=== PATIENT | female | born 1995 | race African-American/Black ===

== ENCOUNTER 2017-01-07 22:36 | Emergency (ER) | payer OTHER ==
[~2017-01-07] VITALS: Ht 167.6 cm; Wt 141.0 kg
[2017-01-07 22:38] VITALS: BP 175/107; PULSE 108; RESP 16; TEMP 98.4; O2SAT 100
[2017-01-07] MEDS ORDERED: SODIUM CHLORIDE 0.9% FLUSH 10 ML FLUSH IVF PRN (23:30)
--- NOTE | 2017-01-07 23:44 | RADRPT ---
EXAM DATE/TIME: 01/07/2017 23:37 [facility] COMPARISON: No previous studies available for comparison. INDICATIONS : Cough for two weeks. MEDICAL HISTORY : None. SURGICAL HISTORY : None. ENCOUNTER: Initial ACUITY: 2 weeks PAIN SCORE: 2/10 LOCATION: Bilateral chest FINDINGS: PA and lateral views of the chest demonstrate the lungs to be symmetrically aerated without evidence of mass, infiltrate or effusion. The cardiomediastinal contours are unremarkable. Osseous structure s are intact. CONCLUSION: No evidence of acute cardiopulmonary disease. Martin Barry MD on January 07, 2017 at 23:42 Board Certified Radiologist. This report was verified electronically.
--- NOTE | 2017-01-07 23:58 | PD ---
HPI Chief Complaint: Chest Pain Time Seen by Provider: 23:07 Travel History International Travel<30 days: No Contact w/Intl Traveler<30days: No Traveled to known affect area: No History of Present Illness HPI Patient is a 21-year-old female who comes in complaining of chest pain. She says she has been having the pain on and off for the past 2 weeks. She says it got worse last night, and she felt a pressure in her chest. She does report some coughing and occasionally gets out of breath. She denies any fever or chills. She says she went to [facility] and found her blood pressure to be high, so they told her she should come in to the emergency department. She has no history of heart problems. She has history of psychiatric issues, but has not been on her medications. She denies any recent travel, contraceptive use, leg swelling or leg pain. PFSH Past Medical History Bipolar Disorder: Yes Diminished Hearing: No Tetanus Vaccination: Unknown Influenza Vaccination: No ?: Not LMP: 2 MONTHS AGO - IRREGULAR Past Surgical History Oral Surgery: Yes Social History Alcohol Use: No Tobacco Use: No Substance Use: No Allergies-Medications (Allergen,Severity, Reaction): Coded Allergies: No Known Allergies (Unverified , 01/07/17) Reported Meds & Prescriptions Reported Meds & Active Scripts Active Proventil Hfa 6.7 GM Inh (Albuterol Sulfate) 90 Mcg/Act Aer 2 Puff INH Q4-6H PRN Zithromax Z-Doroteo (Azithromycin) 250 Mg Dspk 250 Mg PO DIRECTED 500 MG (2 tabs) day 1, then 1 tab days 2-5. Review of Systems Except as stated in HPI: all other systems reviewed are Neg General / Constitutional: No: Fever, Chills HENT: No: Headaches, Lightheadedness Cardiovascular: Positive: Chest Pain or Discomfort Respiratory: Positive: Cough, Shortness of Breath Gastrointestinal: No: Nausea, Vomiting, Abdominal Pain Genitourinary: No: Urgency, Frequency, Dysuria Musculoskeletal: No: Edema, Pain Skin: No Rash, No Change in Pigmentation Neurologic: No: Weakness, Dizziness Physical Exam Narrative GENERAL: Awake and alert, in no acute distress. SKIN: Focused skin assessment warm/dry. HEAD: Atraumatic. Normocephalic. EYES: Pupils equal and round. No scleral icterus. ENT: Mucous membranes pink and moist. NECK: Trachea midline. No JVD. CARDIOVASCULAR: Regular rate and rhythm. No murmur appreciated. RESPIRATORY: No accessory muscle use. Clear to auscultation. Breath sounds equal bilaterally. GASTROINTESTINAL: Abdomen soft, non-tender, nondistended. MUSCULOSKELETAL: No obvious deformities. No clubbing. No cyanosis. No edema. No calf tenderness. NEUROLOGICAL: Awake and alert. No obvious cranial nerve deficits. Motor grossly within normal limits. Normal speech. PSYCHIATRIC: Appropriate mood and affect; insight and judgment normal. Data Data Last Documented VS Vital Signs Date Time Temp Pulse Resp B/P Pulse Ox O2 Delivery O2 Flow Rate FiO2 01/08/17 02:02 94 20 132/76 100 01/07/17 22:38 98.4 Orders Chest, Pa & Lat (01/07/17 ) Complete Blood Count With Diff (01/07/17 23:17) Comprehensive Metabolic Panel (01/07/17 23:17) D-Dimer (01/07/17 23:17) Troponin I (01/07/17 23:17) Ecg Monitoring (01/07/17 23:17) Iv Access Insert/Monitor (01/07/17 23:17) Oximetry (01/07/17 23:17) Sodium Chloride 0.9% Flush (Ns Flush) (01/07/17 23:30) Ed Urine Pregnancytest Poc (01/07/17 23:17) Electrocardiogram (01/08/17 ) Ct Pulmonary Angiogram (01/08/17 00:41) Iohexol 350 Inj (Omnipaque 350 Inj) (01/08/17 01:21) Labs Laboratory Tests Test 01/08/17 00:05 White Blood Count 13.7 TH/MM3 Red Blood Count 4.47 MIL/MM3 Hemoglobin 10.8 GM/DL Hematocrit 34.2 % Mean Corpuscular Volume 76.4 FL Mean Corpuscular Hemoglobin 24.1 PG Mean Corpuscular Hemoglobin 31.5 % Concent Red Cell Distribution Width 18.2 % Platelet Count 396 TH/MM3 Mean Platelet Volume 7.2 FL Neutrophils (%) (Auto) % Lymphocytes (%) (Auto) % Monocytes (%) (Auto) % Eosinophils (%) (Auto) % Basophils (%) (Auto) % Neutrophils # (Auto) TH/MM3 Lymphocytes # (Auto) TH/MM3 Monocytes # (Auto) TH/MM3 Eosinophils # (Auto) TH/MM3 Basophils # (Auto) TH/MM3 CBC Comment AUTO DIFF Differential Total Cells 100 Counted Neutrophils % (Manual) 44 % Lymphocytes % 52 % Monocytes % 4 % Neutrophils # (Manual) 6.0 TH/MM3 Differential Comment FINAL DIFF MANUAL Platelet Estimate NORMAL Platelet Morphology Comment NORMAL D-Dimer Quantitative (PE/DVT) 0.64 MG/L FEU Sodium Level 142 MEQ/L Potassium Level 3.6 MEQ/L Chloride Level 105 MEQ/L Carbon Dioxide Level 28.3 MEQ/L Anion Gap 9 MEQ/L Blood Urea Nitrogen 13 MG/DL Creatinine 0.89 MG/DL Estimat Glomerular Filtration 79 ML/MIN Rate Random Glucose 93 MG/DL Calcium Level 9.1 MG/DL Total Bilirubin 0.2 MG/DL Aspartate Amino Transf 14 U/L (AST/SGOT) Alanine Aminotransferase 18 U/L (ALT/SGPT) Alkaline Phosphatase 81 U/L Troponin I LESS THAN 0.02 NG/ML Total Protein 8.8 GM/DL Albumin 3.8 GM/DL [facility] Medical Decision Making Medical Screen Exam Complete: Yes Emergency Medical Condition: Yes Differential Diagnosis Pneumonia versus pneumothorax versus costochondritis versus bronchitis Narrative Course Patient is a 20-year-old female comes in complaining of chest pain. Exam shows no acute abnormalities. Patient is hypertensive, but has no other risk factors for ACS. She denies any drug use. IV established, labs sent. Chest x-ray performed shows no acute abnormalities. Troponin is negative, but D-dimer is elevated. CTA ordered to rule out PE as cause of chest pain. Patient signed out to Dr. Renteria to follow up CTA and disposition the patient. Scripts Albuterol 6.7 GM Inh (Proventil Hfa 6.7 GM Inh)90 Mcg/Act Aer2 Puff INH Q4-6H PRN (SHORTNESS OF BREATH) #1 INHALER Ref 0 Prov:Josee Renteria MD 01/08/17 Azithromycin (Zithromax Z-Doroteo)250 Mg [id number] Mg PO DIRECTED #1 DSPK Ref 0 500 MG (2 tabs) day 1, then 1 tab days 2-5. Prov:Josee Renteria MD 01/08/17 Melissa Pizarro MD Jan 07, 2017 23:58
[2017-01-08 00:24] LABS: HEMATOCRIT 34.2 % (35.0-46.0); MEAN CELL VOLUME 76.4 FL (80.0-100.0); MEAN CORPUSCULAR HEMOGLOBIN 24.1 PG (27.0-34.0); MEAN CORPUSCULAR HGB CONC 31.5 % (32.0-36.0); PLATELET COUNT 396 TH/MM3 (150-450); RED BLOOD COUNT 4.47 MIL/MM3 (4.00-5.30); RED CELL DISTRIBUTION WIDTH 18.2 % (11.6-17.2); WHITE BLOOD COUNT 13.7 TH/MM3 (4.0-11.0)
[2017-01-08 00:25] LABS: HEMO FLAGS AUTO DIFF
[2017-01-08 00:37] LABS: ALT (GPT) 18 U/L (10-53); ANION GAP 9 MEQ/L (5-15); AST (GOT) 14 U/L (15-37); BICARBONATE 28.3 MEQ/L (21.0-32.0); BLOOD UREA NITROGEN 13 MG/DL (7-18); CHLORIDE 105 MEQ/L (98-107); GLOMERULAR FILTRATION RATE 79 ML/MIN (>89); POTASSIUM 3.6 MEQ/L (3.5-5.1); SODIUM (NA) 142 MEQ/L (136-145)
[2017-01-08 00:40] LABS: ALKALINE PHOSPHATASE 81 U/L (45-117); TOTAL BILIRUBIN ADULT 0.2 MG/DL (0.2-1.0)
[2017-01-08 01:21] VITALS: BP 123/74; PULSE 90; RESP 20; O2SAT 100
[2017-01-08] MEDS ORDERED: IOHEXOL 350 MG/ML 10 ML VIAL (for RAD DIAG) IV ONE (01:21)
--- NOTE | 2017-01-08 01:23 | RADRPT ---
EXAM DATE/TIME: 01/08/2017 01:03 [facility] COMPARISON: No previous studies available for comparison. INDICATIONS : Chest pain from cough. IV CONTRAST: 70 cc Omnipaque 350 (iohexol) IV RADIATION DOSE: 25.52 CTDIvol (mGy) MEDICAL HISTORY : None SURGICAL HISTORY : None. ENCOUNTER: Initial ACUITY: 2 weeks PAIN SCALE: 8/10 LOCATION: Bilateral chest TECHNIQUE: Volumetric scanning of the chest was performed using a pulmonary embolism protocol MIP images were re constructed. Using automated exposure control and adjustment of the mA and/or kV according to patien t size, radiation dose was kept as low as reasonably achievable to obtain optimal diagnostic quality images. FINDINGS: PULMONARY ARTERIES: No filling defects are seen in the pulmonary arteries through the segmental level. LUNGS: There is no consolidation or pneumothorax . No concerning pulmonary nodule is visualized. PLEURAE: There is no pleural thickening or pleural effusion. MEDIASTINUM: There is good visualization of the great vessels of the middle mediastinum. No evidence of mediastin al or hilar adenopathy/mass. MUSCULOSKELETAL: Within normal limits for patient age. MISCELLANEOUS: The visualized upper abdominal organs demonstrate no acute abnormality. CONCLUSION: No pulmonary embolus demonstrated. Lungs are clear. Martin Barry MD on January 08, 2017 at 1:20 Board Certified Radiologist. This report was verified electronically.
[2017-01-08 01:32] LABS: POLYS (SEG NEUTROPHILS) 44 % (16-70); WBC DIFF SAMPLE 100
[2017-01-08 01:33] LABS: PLATELET ESTIMATE SMEAR NORMAL (NORMAL); PLATELET MORPHOLOGY NORMAL (NORMAL); SCAN/DIFF FINAL DIFF MANUAL
[2017-01-08] MEDS ORDERED: ALBU6.7H INH (01:42)
[2017-01-08] MEDS ORDERED: ZITHTAB PO (01:42)
--- NOTE | 2017-01-08 01:42 | PD ---
Physical Exam Date Seen by Provider: Jan 08, 2017 Time Seen by Provider: 01:00 Narrative Patient signed out to me at [address] Sanchez, please see previous notes for further information. Awaiting CTA for completion of workup. EKG, chest x-ray, and other exam is essentially unremarkable. Laboratory Tests Test 01/08/17 00:05 White Blood Count 13.7 TH/MM3 (4.0-11.0) Hemoglobin 10.8 GM/DL (11.6-15.3) Hematocrit 34.2 % (35.0-46.0) Mean Corpuscular Volume 76.4 FL (80.0-100.0) Mean Corpuscular Hemoglobin 24.1 PG (27.0-34.0) Mean Corpuscular Hemoglobin 31.5 % Concent (32.0-36.0) Red Cell Distribution Width 18.2 % (11.6-17.2) Lymphocytes % 52 % (9-44) D-Dimer Quantitative (PE/DVT) 0.64 MG/L FEU (0.00-0.50) Estimat Glomerular Filtration 79 ML/MIN (>89) Rate Aspartate Amino Transf 14 U/L (15-37) (AST/SGOT) Troponin I LESS THAN 0.02 NG/ML (0.02-0.05) Total Protein 8.8 GM/DL (6.4-8.2) Last [address] Angiography 01/08/17 0041 Signed Impressions: Service Date/Time: Sunday, January 08, 2017 01:03 - CONCLUSION: No pulmonary embolus demonstrated. Lungs are clear. Martin Barry MD Chest X-Ray 01/07/17 0000 Signed Impressions: Service Date/Time: Saturday, January 07, 2017 23:37 - CONCLUSION: No evidence of acute cardiopulmonary disease. Martin Barry MD CTA did not show signs of PE. At this point, considering patient's 2 weeks' history of coughing and symptoms, symptoms are more indicative of bronchitis and my plan would be to treat him for bronchitis and have her follow-up with primary care physician. Return for any worsening in symptoms as needed. The plan has been discussed with her and she states understanding. Data Data Last Documented VS Vital Signs Date Time Temp Pulse Resp B/P Pulse Ox O2 Delivery O2 Flow Rate FiO2 01/08/17 01:21 90 20 123/74 100 01/07/17 22:38 98.4 Orders Chest, Pa & Lat (01/07/17 ) Complete Blood Count With Diff (01/07/17 23:17) Comprehensive Metabolic Panel (01/07/17 23:17) D-Dimer (01/07/17 23:17) Troponin I (01/07/17 23:17) Ecg Monitoring (01/07/17 23:17) Iv Access Insert/Monitor (01/07/17 23:17) Oximetry (01/07/17 23:17) Sodium Chloride 0.9% Flush (Ns Flush) (01/07/17 23:30) Ed Urine Pregnancytest Poc (01/07/17 23:17) Electrocardiogram (01/08/17 ) Ct Pulmonary Angiogram (01/08/17 00:41) Iohexol 350 Inj (Omnipaque 350 Inj) (01/08/17 01:21) Labs Laboratory Tests Test 01/08/17 00:05 White Blood Count 13.7 TH/MM3 Red Blood Count 4.47 MIL/MM3 Hemoglobin 10.8 GM/DL Hematocrit 34.2 % Mean Corpuscular Volume 76.4 FL Mean Corpuscular Hemoglobin 24.1 PG Mean Corpuscular Hemoglobin 31.5 % Concent Red Cell Distribution Width 18.2 % Platelet Count 396 TH/MM3 Mean Platelet Volume 7.2 FL Neutrophils (%) (Auto) % Lymphocytes (%) (Auto) % Monocytes (%) (Auto) % Eosinophils (%) (Auto) % Basophils (%) (Auto) % Neutrophils # (Auto) TH/MM3 Lymphocytes # (Auto) TH/MM3 Monocytes # (Auto) TH/MM3 Eosinophils # (Auto) TH/MM3 Basophils # (Auto) TH/MM3 CBC Comment AUTO DIFF Differential Total Cells 100 Counted Neutrophils % (Manual) 44 % Lymphocytes % 52 % Monocytes % 4 % Neutrophils # (Manual) 6.0 TH/MM3 Differential Comment FINAL DIFF MANUAL Platelet Estimate NORMAL Platelet Morphology Comment NORMAL D-Dimer Quantitative (PE/DVT) 0.64 MG/L FEU Sodium Level 142 MEQ/L Potassium Level 3.6 MEQ/L Chloride Level 105 MEQ/L Carbon Dioxide Level 28.3 MEQ/L Anion Gap 9 MEQ/L Blood Urea Nitrogen 13 MG/DL Creatinine 0.89 MG/DL Estimat Glomerular Filtration 79 ML/MIN Rate Random Glucose 93 MG/DL Calcium Level 9.1 MG/DL Total Bilirubin 0.2 MG/DL Aspartate Amino Transf 14 U/L (AST/SGOT) Alanine Aminotransferase 18 U/L (ALT/SGPT) Alkaline Phosphatase 81 U/L Troponin I LESS THAN 0.02 NG/ML Total Protein 8.8 GM/DL Albumin 3.8 GM/DL [facility] Medical Record Reviewed: Yes Supervised Visit with VJ: No Diagnosis Primary Impression: Chest pain Additional Impression: Bronchitis Referrals: [facility] Med/Other Pt SpecificInfo: Prescription(s) given Scripts Albuterol 6.7 GM Inh (Proventil Hfa 6.7 GM Inh)90 Mcg/Act Aer2 Puff INH Q4-6H PRN (SHORTNESS OF BREATH) #1 INHALER Ref 0 Prov:Josee Renteria MD 01/08/17 Azithromycin (Zithromax Z-Doroteo)250 Mg [id number] Mg PO DIRECTED #1 DSPK Ref 0 500 MG (2 tabs) day 1, then 1 tab days 2-5. Prov:Josee Renteria MD 01/08/17 Disposition: DISCHARGE HOME Condition: Stable Josee Renteria MD Jan 08, 2017 01:42
[2017-01-08 02:02] VITALS: BP 132/76
--- NOTE | 2017-01-08 17:10 | EKG ---
Date Performed: 01/08/2017 Time Performed: 00:19:46 PTAGE: 21 years EKG: Sinus rhythm MODERATE VOLTAGE CRITERIA FOR LVH, CONSIDER NORMAL VARIANT BORDERLINE ECG NO PREVIOUS TRACING DOCTOR: Carolina Garrett Interpretating Date/Time 01/08/2017 17:07:19
== END 2017-01-08 02:31 | disposition home or self-care (01) ==
LOC: NEPD 22:36 → NEPE 01-08 02:31
DX: R07.9 Chest pain, unspecified (principal); J40 Bronchitis, not specified as acute or chronic; I10 Essential (primary) hypertension; R94.31 Abnormal electrocardiogram [ECG] [EKG]
CPT/HCPCS: 71020; 71275; 80053; 84484; 84703; 85007; 85027; 85379; 93005; 99285; Q9967

== ENCOUNTER 2017-01-09 18:01 | Emergency (ER) | payer OTHER ==
[~2017-01-09] VITALS: Ht 167.6 cm; Wt 140.9 kg
[~2017-01-09 18:01] MED LIST: ALBU6.7H INH; ZITHTAB PO
[2017-01-09 18:15] VITALS: BP 128/73; PULSE 90; RESP 18; TEMP 98.4; O2SAT 94
[2017-01-09 19:22] VITALS: BP 144/75; PULSE 88; RESP 16; O2SAT 97
--- NOTE | 2017-01-09 19:58 | PD ---
HPI Chief Complaint: Chest Pain Time Seen by Provider: 19:18 Travel History International Travel<30 days: No Contact w/Intl Traveler<30days: No Traveled to known affect area: No History of Present Illness HPI The patient was seen and examined in the presence of the nurse. This patient complains of chest pain. She's had chest pain on and off for one week. It's located in the center sternum. She was seen here yesterday for the same complaint and had extensive workup which was negative. She was given prescriptions which she did not fill. Severity is mild. No alleviating factors. PFSH Past Medical History Bipolar Disorder: Yes Diminished Hearing: No ?: Not LMP: OCTOBER 2016 Past Surgical History Oral Surgery: Yes Social History Alcohol Use: No Tobacco Use: Yes Substance Use: No Allergies-Medications (Allergen,Severity, Reaction): Coded Allergies: No Known Allergies (Unverified , 01/07/17) Reported Meds & Prescriptions Reported Meds & Active Scripts Active Proventil Hfa 6.7 GM Inh (Albuterol Sulfate) 90 Mcg/Act Aer 2 Puff INH Q4-6H PRN Zithromax Z-Doroteo (Azithromycin) 250 Mg Dspk 250 Mg PO DIRECTED 500 MG (2 tabs) day 1, then 1 tab days 2-5. Review of Systems General / Constitutional: No: Fever Eyes: No: Visual changes HENT: No: Headaches Cardiovascular: Positive: Chest Pain or Discomfort Respiratory: No: Shortness of Breath Gastrointestinal: No: Abdominal Pain Genitourinary: No: Dysuria Musculoskeletal: No: Pain Skin: No Rash Neurologic: No: Weakness Psychiatric: No: Depression Endocrine: No: Polydipsia Hematologic/Lymphatic: No: Easy Bruising Physical Exam Narrative GENERAL: Well-nourished, well-developed patient in no apparent distress. SKIN: Focused skin assessment reveals no rash and nodules. Skin is Warm and dry. HEAD: Atraumatic. Normocephalic. EYES: Pupils equal and round. No scleral icterus. No injection or drainage. ENT: No nasal bleeding or discharge. Mucous membranes pink and moist. NECK: Trachea midline. No JVD. CARDIOVASCULAR: Regular rate and rhythm. No murmur appreciated. RESPIRATORY: No accessory muscle use. Clear to auscultation. Breath sounds equal bilaterally. GASTROINTESTINAL: Abdomen soft, obese, non-tender, nondistended. Hepatic and splenic margins not palpable. MUSCULOSKELETAL: No obvious deformities. No clubbing. No cyanosis. No edema. She has readily reproducible sternal tenderness replicate her chest pain complaints NEUROLOGICAL: Awake and alert. No obvious cranial nerve deficits. Motor grossly within normal limits. Normal speech. PSYCHIATRIC: Appropriate mood and affect; insight and judgment normal. Data Data Last Documented VS Vital Signs Date Time Temp Pulse Resp B/P Pulse Ox O2 Delivery O2 Flow Rate FiO2 01/09/17 19:22 88 16 144/75 97 Room Air 01/09/17 18:15 98.4 Orders Electrocardiogram (01/09/17 ) [facility] Medical Decision Making Medical Screen Exam Complete: Yes Emergency Medical Condition: Yes Medical Record Reviewed: Yes Differential Diagnosis Differential diagnosis includes [place], angina, pericarditis, pleurisy, GERD, anxiety. Narrative Course I have reviewed the patient's electronic medical record. I reviewed her extensive workup from yesterday including negative CTA This patient has some clear-cut readily reproducible chest wall tenderness suggesting musculoskeletal cause. She had extensive workup yesterday and I don't feel this needs to be repeated a day later. No clinical suspicion of CAD in this 21-year-old. Supportive care discussed The patient was advised to follow up with their physician and return if they worsen. Diagnosis Primary Impression: Musculoskeletal chest pain Additional Instructions: The patient was advised to follow up with their physician and return if they worsen. Med/Other Pt SpecificInfo: Other Disposition: 01 DISCHARGE HOME Condition: Stable Davide Gonzalez MD Jan 09, 2017 19:58
--- NOTE | 2017-01-10 13:57 | EKG ---
Date Performed: 01/09/2017 Time Performed: 18:52:51 PTAGE: 21 years EKG: Sinus rhythm MODERATE VOLTAGE CRITERIA FOR LVH, CONSIDER NORMAL VARIANT BORDERLINE ECG Compared to prior tracing no significant change PREVIOUS TRACING : 01/08/2017 00.19 DOCTOR: Millie Goddard Interpretating Date/Time 01/10/2017 13:50:26
== END 2017-01-09 20:12 | disposition home or self-care (01) ==
LOC: NEPC 18:01
DX: R07.89 Other chest pain (principal); F31.9 Bipolar disorder, unspecified; Z72.0 Tobacco use; Z79.899 Other long term (current) drug therapy
CPT/HCPCS: 93005; 99283

== ENCOUNTER 2017-01-23 20:11 | Emergency (ER) | payer MEDICAID, OTHER ==
[~2017-01-23] VITALS: Ht 167.6 cm; Wt 146.0 kg
[2017-01-23 20:13] VITALS: BP 140/95; PULSE 103; RESP 16; TEMP 98.8; O2SAT 98
--- NOTE | 2017-01-23 21:58 | PD ---
HPI Chief Complaint: Psychiatric Symptoms Time Seen by Provider: 21:12 Travel History International Travel<30 days: No Contact w/Intl Traveler<30days: No Traveled to known affect area: No History of Present Illness HPI Said 21-year-old woman who presents to the emergency department complaining of increased depression feelings. She's reports a history of bipolar disorder, as well as schizophrenia. States she is postictal shot each month and pills everyday but she hasn't been on medicines for some time. She recently moved to the area and has not seen a psychiatrist in this area before. She reports that over the past couple weeks she had increased depression symptoms. States she has also hurting herself at times, this is been worse over the past couple days because actually little bit better today. She does not feel that she is an imminent threat to herself or others at this point. She states she would like to see a psychiatrist because she feels like she is to be back on medicine. She does want to stay for psychiatric evaluation the ED this evening she would benefit from being admitted for depression symptoms. She does deny any hallucinations or delusions. History Past Medical History Narrative Medical Bipolar disorder, schizophrenia History of seizures as a child LMP: IRREG Social History Alcohol Use: Yes (OCC) Tobacco Use: Yes Allergies-Medications (Allergen,Severity, Reaction): Coded Allergies: No Known Allergies (Unverified , 01/23/17) Reported Meds & Prescriptions Reported Meds & Active Scripts Active Review of Systems Except as stated in HPI: all other systems reviewed are Neg Physical Exam Narrative GENERAL: 18 year-old woman, no acute distress. SKIN: Focused skin assessment warm/dry. HEAD: Atraumatic. Normocephalic. EYES: Pupils equal and round. No scleral icterus. No injection or drainage. ENT: No nasal bleeding or discharge. Mucous membranes pink and moist. NECK: Trachea midline. No JVD. CARDIOVASCULAR: Regular rate and rhythm. No murmur appreciated. RESPIRATORY: No accessory muscle use. Clear to auscultation. Breath sounds equal bilaterally. GASTROINTESTINAL: Abdomen soft, non-tender, nondistended. Hepatic and splenic margins not palpable. MUSCULOSKELETAL: No obvious deformities. No clubbing. No cyanosis. No edema. NEUROLOGICAL: Awake and alert. No obvious cranial nerve deficits. Motor grossly within normal limits. Normal speech. PSYCHIATRIC: Flat, somewhat sad mood. No apparent delusions or hallucinations. Insight and judgment appears fair. Data Data Last Documented VS Vital Signs Date Time Temp Pulse Resp B/P Pulse Ox O2 Delivery O2 Flow Rate FiO2 01/23/17 20:13 98.8 103 16 140/95 98 Room Air Orders Complete Blood Count With Diff (01/23/17 21:27) Comprehensive Metabolic Panel (01/23/17 21:27) Ed Urine Pregnancytest Poc (01/23/17 21:27) Psych Screen (01/23/17 21:27) Drug Screen, Random Urine (01/23/17 21:27) MDM Medical Decision Making Medical Screen Exam Complete: Yes Emergency Medical Condition: Yes Differential Diagnosis Depression, suicidality, adjustment reaction, other Narrative Course Medical decision making 20 year-old woman presents emergent [place] of increased depression feeling depressed and she psychiatry. No somatic complaints. Patient looks otherwise well. Patient is medically clear for psychiatric evaluation. Mental health screening discussed with the patient. Psychiatric screen ordered. Scripts No Active Prescriptions or Reported Meds Jg Gonzalez MD Jan 23, 2017 21:58
[2017-01-23 22:10] LABS: AUTOMATED NEUTROPHIL # 5.1 TH/MM3 (1.8-7.7); BASOPHIL # 0.1 TH/MM3 (0-0.2); BASOPHIL % 0.7 % (0.0-2.0); EOSINOPHIL # 0.1 TH/MM3 (0-0.4); EOSINOPHIL % 0.6 % (0.0-4.0); HEMATOCRIT 35.9 % (35.0-46.0); HEMO FLAGS DIFF FINAL; LYMPH % 37.4 % (9.0-44.0); LYMPHOCYTE # 3.5 TH/MM3 (1.0-4.8); MEAN CELL VOLUME 77.1 FL (80.0-100.0); MEAN CORPUSCULAR HEMOGLOBIN 23.7 PG (27.0-34.0); MEAN CORPUSCULAR HGB CONC 30.8 % (32.0-36.0); MONO % 7.7 % (0.0-8.0); NEUT % 53.6 % (16.0-70.0); PLATELET COUNT 403 TH/MM3 (150-450); RED BLOOD COUNT 4.66 MIL/MM3 (4.00-5.30); RED CELL DISTRIBUTION WIDTH 17.8 % (11.6-17.2); WHITE BLOOD COUNT 9.5 TH/MM3 (4.0-11.0)
[2017-01-23 22:18] LABS: AMPHETAMINE, URINE NEG (NEG); BARBITURATES, URINE NEG (NEG); COCAINE, URINE NEG (NEG)
[2017-01-23 22:33] LABS: ALT (GPT) 20 U/L (10-53); ANION GAP 5 MEQ/L (5-15); AST (GOT) 13 U/L (15-37); BICARBONATE 29.8 MEQ/L (21.0-32.0); BLOOD UREA NITROGEN 12 MG/DL (7-18); CHLORIDE 105 MEQ/L (98-107); GLOMERULAR FILTRATION RATE 111 ML/MIN (>89); POTASSIUM 3.4 MEQ/L (3.5-5.1); SODIUM (NA) 140 MEQ/L (136-145)
[2017-01-23 22:36] LABS: ALKALINE PHOSPHATASE 84 U/L (45-117); TOTAL BILIRUBIN ADULT 0.1 MG/DL (0.2-1.0)
--- NOTE | 2017-01-23 22:41 | PD ---
Data Data Last Documented VS Vital Signs Date Time Temp Pulse Resp B/P Pulse Ox O2 Delivery O2 Flow Rate FiO2 01/23/17 20:13 98.8 103 16 140/95 98 Room Air Orders Complete Blood Count With Diff (01/23/17 21:27) Comprehensive Metabolic Panel (01/23/17 21:27) Ed Urine Pregnancytest Poc (01/23/17 21:27) Psych Screen (01/23/17 21:27) Drug Screen, Random Urine (01/23/17 21:27) Labs Laboratory Tests Test 01/23/17 21:35 White Blood Count 9.5 TH/MM3 Red Blood Count 4.66 MIL/MM3 Hemoglobin 11.0 GM/DL Hematocrit 35.9 % Mean Corpuscular Volume 77.1 FL Mean Corpuscular Hemoglobin 23.7 PG Mean Corpuscular Hemoglobin 30.8 % Concent Red Cell Distribution Width 17.8 % Platelet Count 403 TH/MM3 Mean Platelet Volume 7.2 FL Neutrophils (%) (Auto) 53.6 % Lymphocytes (%) (Auto) 37.4 % Monocytes (%) (Auto) 7.7 % Eosinophils (%) (Auto) 0.6 % Basophils (%) (Auto) 0.7 % Neutrophils # (Auto) 5.1 TH/MM3 Lymphocytes # (Auto) 3.5 TH/MM3 Monocytes # (Auto) 0.7 TH/MM3 Eosinophils # (Auto) 0.1 TH/MM3 Basophils # (Auto) 0.1 TH/MM3 CBC Comment DIFF FINAL Differential Comment Sodium Level 140 MEQ/L Potassium Level 3.4 MEQ/L Chloride Level 105 MEQ/L Carbon Dioxide Level 29.8 MEQ/L Anion Gap 5 MEQ/L Blood Urea Nitrogen 12 MG/DL Creatinine 0.78 MG/DL Estimat Glomerular Filtration 111 ML/MIN Rate Random Glucose 89 MG/DL Calcium Level 9.4 MG/DL Total Bilirubin 0.1 MG/DL Aspartate Amino Transf 13 U/L (AST/SGOT) Alanine Aminotransferase 20 U/L (ALT/SGPT) Alkaline Phosphatase 84 U/L Total Protein 8.4 GM/DL Albumin 3.6 GM/DL Urine Opiates Screen NEG Urine Barbiturates Screen NEG Urine Amphetamines Screen NEG Urine Benzodiazepines Screen NEG Urine Cocaine Screen NEG Urine Cannabinoids Screen POS MDM Supervised Visit with VJ: No Diagnosis Primary Impression: Depression Referrals: [facility] 1 day Additional Instruction: Follow-up with Zack Robertson as discussed. Return to the emergency department for any new or worsening symptoms. Med/Other Pt SpecificInfo: No Change to Meds Scripts No Active Prescriptions or Reported Meds Disposition: 01 DISCHARGE HOME Condition: Jg Hardy MD Jan 23, 2017 22:41
== END 2017-01-23 23:42 | disposition home or self-care (01) ==
LOC: NEPD 20:11
DX: F32.9 Major depressive disorder, single episode, unspecified (principal); F31.9 Bipolar disorder, unspecified; F20.9 Schizophrenia, unspecified; Z72.0 Tobacco use; R45.851 Suicidal ideations
CPT/HCPCS: 80053; 80307; 84703; 85025; 99283

== ENCOUNTER 2017-02-11 17:10 | Observation (INO) | payer MEDICAID ==
[~2017-02-11] VITALS: Ht 172.7 cm; Wt 95.0 kg
[2017-02-11] MEDS ORDERED: SODIUM CHLOR 0.9% 1000 ML INJ 1,000 ML IV ONE (17:19)
[2017-02-11 17:21] VITALS: BP 177/99; PULSE 93; RESP 18; TEMP 99.3; O2SAT 99
[2017-02-11 17:30] VITALS: BP 177/99; PULSE 98; RESP 18; TEMP 99.3; O2SAT 100
[2017-02-11] MEDS ORDERED: SODIUM CHLORIDE 0.9% FLUSH 10 ML FLUSH IVF PRN (17:30)
--- NOTE | 2017-02-11 17:32 | PD ---
HPI Chief Complaint: Suicide Ideation/Attempt Time Seen by Provider: 17:19 Travel History International Travel<30 days: No Contact w/Intl Traveler<30days: No Traveled to known affect area: No History of Present Illness HPI 21-year-old female patient with previous history of suicide attempts, presents to the ER today brought in by EMS after taking Tylenol Cold and flu nighttime relief 12 tablets in overdose about an hour half prior to arrival. Patient currently is lethargic. She denies any other coingestions, alcohol use, or drug use. She has been Romero acted by PD. Modifying Factors: None Associated Signs & Symptoms: Romero act, intentional overdose of Tylenol Cold and flu Risk Factors: Previous overdose PFSH Past Medical History Bipolar Disorder: Yes Diminished Hearing: No Past Surgical History Oral Surgery: Yes Social History Alcohol Use: Yes (OCC) Tobacco Use: Yes Substance Use: No Allergies-Medications (Allergen,Severity, Reaction): Coded Allergies: No Known Allergies (Unverified , 01/23/17) Reported Meds & Prescriptions Reported Meds & Active Scripts Active No Active Prescriptions or Reported Medications Review of Systems ROS Limitations: Altered Mental Status Physical Exam Narrative GENERAL: Well-developed young obese -Tongan female patient who is in mild distress. Awake, but lethargic, mildly disoriented. SKIN: Focused skin assessment warm/dry. HEAD: Atraumatic. Normocephalic. EYES: Pupils equal and round. No scleral icterus. No injection or drainage. ENT: No nasal bleeding or discharge. Mucous membranes pink and moist. NECK: Trachea midline. No JVD. CARDIOVASCULAR: Regular rate and rhythm. No murmur appreciated. RESPIRATORY: No accessory muscle use. Clear to auscultation. Breath sounds equal bilaterally. GASTROINTESTINAL: Abdomen soft, non-tender, nondistended. Hepatic and splenic margins not palpable. MUSCULOSKELETAL: No obvious deformities. No clubbing. No cyanosis. No edema. NEUROLOGICAL: Awake and alert. No obvious cranial nerve deficits. Motor grossly within normal limits. Normal speech. PSYCHIATRIC: Appropriate mood and affect; insight and judgment normal. Data Data Last Documented VS Vital Signs Date Time Temp Pulse Resp B/P Pulse Ox O2 Delivery O2 Flow Rate FiO2 02/11/17 17:30 109 18 98 Room Air 02/11/17 17:30 99.3 177/99 Orders Electrocardiogram (02/11/17 17:19) Complete Blood Count With Diff (02/11/17 17:19) Comprehensive Metabolic Panel (02/11/17 17:19) Urinalysis - C+S If Indicated (02/11/17 17:19) Iv Access Insert/Monitor (02/11/17 17:19) Ecg Monitoring (02/11/17 17:19) Oximetry (02/11/17 17:19) Sodium Chloride 0.9% Flush (Ns Flush) (02/11/17 17:30) Sodium Chlor 0.9% 1000 Ml Inj (Ns 1000 M (02/11/17 17:19) Call Poison Control (02/11/17 17:19) Drug Screen, Random Urine (02/11/17 17:19) Alcohol (Ethanol) (02/11/17 17:19) Salicylates (Aspirin) (02/11/17 17:19) Tylenol (Acetaminophen) (02/11/17 17:19) Prothrombin Time / Inr (Pt) (02/11/17 18:18) Act Partial Throm Time (Ptt) (02/11/17 18:18) Ed Urine Pregnancytest Poc (02/11/17 18:18) Labs Laboratory Tests Test 02/11/17 17:30 White Blood Count 10.2 TH/MM3 Red Blood Count 4.10 MIL/MM3 Hemoglobin 10.3 GM/DL Hematocrit 31.7 % Mean Corpuscular Volume 77.3 FL Mean Corpuscular Hemoglobin 25.1 PG Mean Corpuscular Hemoglobin 32.5 % Concent Red Cell Distribution Width 17.8 % Platelet Count 366 TH/MM3 Mean Platelet Volume 7.2 FL Neutrophils (%) (Auto) 50.8 % Lymphocytes (%) (Auto) 41.1 % Monocytes (%) (Auto) 7.2 % Eosinophils (%) (Auto) 0.5 % Basophils (%) (Auto) 0.4 % Neutrophils # (Auto) 5.2 TH/MM3 Lymphocytes # (Auto) 4.2 TH/MM3 Monocytes # (Auto) 0.7 TH/MM3 Eosinophils # (Auto) 0.1 TH/MM3 Basophils # (Auto) 0.0 TH/MM3 CBC Comment DIFF FINAL Differential Comment Salicylates Level LESS THAN 1.7 MG/DL MDM Medical Decision Making Medical Screen Exam Complete: Yes Emergency Medical Condition: Yes Medical Record Reviewed: Yes Interpretation(s) EKG shows sinus tachycardia at a rate of 100 bpm, no ST elevation or depression , and no arrhythmias. No significant T-wave inversions. QRS 90 ms. No signs of QT prolongation. Laboratory Tests Test 02/11/17 17:30 Hemoglobin 10.3 GM/DL (11.6-15.3) Hematocrit 31.7 % (35.0-46.0) Mean Corpuscular Volume 77.3 FL (80.0-100.0) Mean Corpuscular Hemoglobin 25.1 PG (27.0-34.0) Red Cell Distribution Width 17.8 % (11.6-17.2) Salicylates Level LESS THAN 1.7 MG/DL (2.8-20.0) Differential Diagnosis Romero acts/intentional overdoserule out coingestions versus intoxications Narrative Course Patient is giving IV fluids. She is awake and talking to her sister on reevaluation at 9 PM. Vital signs continue to be stable. At this point, case has been discussed with poison control and they state that they want repeat Tylenol level at 4 hours. They state that the patient should not have significant symptoms with this level of poisoning. Case was then discussed with Dr. Zapien for admission for observation and further testing. Diagnosis Primary Impression: Intentional overdose of drug in tablet form Admitting Information Admitting Physician Requests: Admit Scripts No Active Prescriptions or Reported Meds Josee Renteria MD Feb 11, 2017 17:32
[2017-02-11 18:05] LABS: AUTOMATED NEUTROPHIL # 5.2 TH/MM3 (1.8-7.7); BASOPHIL % 0.4 % (0.0-2.0); EOSINOPHIL # 0.1 TH/MM3 (0-0.4); EOSINOPHIL % 0.5 % (0.0-4.0); HEMATOCRIT 31.7 % (35.0-46.0); HEMO FLAGS DIFF FINAL; LYMPH % 41.1 % (9.0-44.0); LYMPHOCYTE # 4.2 TH/MM3 (1.0-4.8); MEAN CELL VOLUME 77.3 FL (80.0-100.0); MEAN CORPUSCULAR HEMOGLOBIN 25.1 PG (27.0-34.0); MEAN CORPUSCULAR HGB CONC 32.5 % (32.0-36.0); MONO % 7.2 % (0.0-8.0); NEUT % 50.8 % (16.0-70.0); PLATELET COUNT 366 TH/MM3 (150-450); RED CELL DISTRIBUTION WIDTH 17.8 % (11.6-17.2); WHITE BLOOD COUNT 10.2 TH/MM3 (4.0-11.0)
[2017-02-11 18:35] LABS: ALT (GPT) 19 U/L (10-53); ANION GAP 7 MEQ/L (5-15); AST (GOT) 11 U/L (15-37); BICARBONATE 25.3 MEQ/L (21.0-32.0); BLOOD UREA NITROGEN 11 MG/DL (7-18); CHLORIDE 107 MEQ/L (98-107); GLOMERULAR FILTRATION RATE 111 ML/MIN (>89); POTASSIUM 3.6 MEQ/L (3.5-5.1); SODIUM (NA) 139 MEQ/L (136-145)
[2017-02-11 18:37] LABS: ALKALINE PHOSPHATASE 74 U/L (45-117); TOTAL BILIRUBIN ADULT 0.1 MG/DL (0.2-1.0)
[2017-02-11 18:47] LABS: ACETAMINOPHEN LESS THAN 2.0 MCG/ML (10.0-30.0)
--- NOTE | 2017-02-11 19:06 | HHI.HP ---
[facility] Service [facility] Primary Care Physician Unknown Admission Diagnosis intentional overdose/romero act Diagnoses: Chief Complaint: Patient crying tearful I just want to go to "sleep" Travel History International Travel<30 Days: No Contact w/Intl Traveler <30 Da: No Traveled to Known Affected Are: No History of Present Illness Patient is a 21-year-old female known history of bipolar disorder who was brought in here by her sister bed very concerned and called the ambulance because apparently patient told her sister that she took 6-12 tablets of Tylenol cold and flu [id number] medications this morning Patient states that "I just want to go to sleep". Sister stated that she has been depressed for one month now just because of her "situation" . She does not want and is reluctant to elaborate or go into details. Patient states increased weight gain forover year now. When asked about her blood pressure which was high here in the emergency room sister and patient states that they go to [employer] once- twice a week and noted that her blood pressures were high. She has has history of depression and take some pills for that and a shot once a month for bipolar disorder. Patient on at bedside was very tearful and crying. Denies any pain. Patient is not very specific about what precipitated this but persisted this has been going on for the past 3-4 months now and just with the "whole situation" Review of Systems Genitourinary: COMPLAINS OF: Abnormal vaginal bleeding Past Family Social History Past Medical History She gets her blood pressures check in [employer] and her sister notes that she her blood pressures were on the elevated side. History of bipolar disc disorder History of depression Past Surgical History Right knee surgery at a young age Some form of Toradol/gum surgery in the past Reported Medications She was supposed to be taking some pills for depression for which she stopped taking 2-3 weeks ago. She was also on now once a month shots IM for bipolar disorder Allergies: Coded Allergies: No Known Allergies (Unverified , 01/23/17) Family History Family history of hypertension diabetes Social History Occasional smoking very very rare occasional alcohol use Denies any substance abuse Physical Exam Vital Signs Vital Signs Date Time Temp Pulse Resp B/P Pulse Ox O2 Delivery O2 Flow Rate FiO2 02/11/17 17:30 109 18 98 Room Air 02/11/17 17:30 99.3 98 18 177/99 100 Room Air 02/11/17 17:30 100 Room Air 02/11/17 17:21 99.3 93 18 177/99 99 Physical Exam GENERAL: Tearful and crying, in no acute distress. Obese BMI off 31.8 SKIN: No rashes, ecchymoses or lesions. Cool and dry. HEAD: Atraumatic. Normocephalic. No temporal or scalp tenderness. EYES: Pupils equal round and reactive. Extraocular motions intact. No scleral icterus. ENT: Nose without bleeding, Throat without erythema, Airway patent. NECK: Trachea midline. No JVD or lymphadenopathy. Supple, nontender, no meningeal signs. CARDIOVASCULAR: Regular rate and rhythm without murmurs, gallops, or rubs. RESPIRATORY: Clear to auscultation. Breath sounds equal bilaterally. No wheezes , rales, GASTROINTESTINAL: Abdomen soft, mobile early enlarged no tenderness no guarding MUSCULOSKELETAL: Extremities without clubbing, cyanosis, or edema. No joint tenderness, effusion, or edema noted. No calf tenderness. Negative Homans sign bilaterally. NEUROLOGICAL: Awake and alert. Cranial nerves II through XII intact. Motor and sensory grossly within normal limits. Five out of 5 muscle strength in all muscle groups. Normal speech. Laboratory Laboratory Tests Test 02/11/17 17:30 White Blood Count 10.2 Red Blood Count 4.10 Hemoglobin 10.3 Hematocrit 31.7 Mean Corpuscular Volume 77.3 Mean Corpuscular Hemoglobin 25.1 Mean Corpuscular Hemoglobin 32.5 Concent Red Cell Distribution Width 17.8 Platelet Count 366 Mean Platelet Volume 7.2 Neutrophils (%) (Auto) 50.8 Lymphocytes (%) (Auto) 41.1 Monocytes (%) (Auto) 7.2 Eosinophils (%) (Auto) 0.5 Basophils (%) (Auto) 0.4 Neutrophils # (Auto) 5.2 Lymphocytes # (Auto) 4.2 Monocytes # (Auto) 0.7 Eosinophils # (Auto) 0.1 Basophils # (Auto) 0.0 CBC Comment DIFF FINAL Differential Comment Sodium Level 139 Potassium Level 3.6 Chloride Level 107 Carbon Dioxide Level 25.3 Anion Gap 7 Blood Urea Nitrogen 11 Creatinine 0.78 Estimat Glomerular Filtration 111 Rate Random Glucose 111 Calcium Level 8.5 Total Bilirubin 0.1 Aspartate Amino Transf 11 (AST/SGOT) Alanine Aminotransferase 19 (ALT/SGPT) Alkaline Phosphatase 74 Total Protein 7.9 Albumin 3.2 Salicylates Level LESS THAN 1.7 Acetaminophen Level LESS THAN 2.0 Ethyl Alcohol Level LESS THAN 3 Result Diagram: 02/11/17 17302/11/17 173 Imaging 12-lead EKG shows normal sinus rhythm no acute ST-T wave changes Assessment and Plan Assessment and Plan 21-year-old female very tearful and crying apparently stated some suicidal ideations with history of bipolar disorder Admitted for Depression with suicidal expressions to the sister. Psychiatry consult we'll Romero act patient Hypertension - we'll start patient on clonidine when necessary for now with parameters. Heart healthy diet signed get a lipid panel TSH obesity BMI of 31.8 will discuss about weight reduction and exercise when patient is in a better disposition. Microcytic anemia mild check iron studies. Patient seems to have a very good family support through her sister. Melissa Zapien MD Feb 11, 2017 19:06
[2017-02-11 19:12] LABS: BLOOD, URINE MOD (NEG); COMMENT (UR) CULT NOT INDICATED; CULTURE IF INDICATED CULT NOT INDICATED; GLUCOSE,URINE NEG (NEG); KETONE, URINE NEG (NEG); MUCUS URINE FEW /lpf (OCC); NITRITE,URINE NEG (NEG); SQUAMOUS EPITHELIAL CELL URINE 2 /hpf (0-5); URINE COLOR YELLOW (YELLW/STRAW)
[2017-02-11 19:15] LABS: AMPHETAMINE, URINE NEG (NEG); BARBITURATES, URINE NEG (NEG); COCAINE, URINE NEG (NEG)
[2017-02-11 19:23] LABS: APTT (PATIENT) 30.4 SEC (24.3-30.1); INTERNATIONAL NORMALIZED RATIO 1.1 RATIO; PROTHROMBIN TIME - PATIENT 11.8 SEC (9.8-11.6)
[2017-02-11 19:35] VITALS: BP 135/78; PULSE 87; RESP 17; O2SAT 98
[2017-02-11] MEDS ORDERED: cloNIDine HCL 0.1 MG TAB PO PRN (20:00)
[2017-02-11 20:14] VITALS: BP 140/72; PULSE 83; RESP 18; O2SAT 98
[2017-02-11 20:33] VITALS: BP 139/76; PULSE 84; RESP 18; TEMP 98.9; O2SAT 95
[2017-02-11 23:25] LABS: TRANSFERRIN IRON PROFILE 302 MG/DL (200-360)
[2017-02-11 23:34] LABS: FERRITIN 17 NG/ML (8-252)
[2017-02-11 23:40] VITALS: BP 147/79; PULSE 83; RESP 18; TEMP 98.4; O2SAT 98
[2017-02-12 07:53] VITALS: BP 143/72; PULSE 82; RESP 19; TEMP 97.7; O2SAT 98
[2017-02-12] MEDS ORDERED: IBUPROFEN 400 MG TAB PO ONE (08:45)
--- NOTE | 2017-02-12 08:56 | HHI.PR ---
Subjective Remarks Follow up for suicidal ideations, overdose. The patient admits to taking "a bunch" of NyQuil yesterday in an attempt to "go to sleep". She denies any suicidal ideations/attempt. She is guarded with further questioning. Discussed her blood pressure, improved overnight, discussed she needs to f/up with a PCP. The patient complains of a mild headache, requesting medication. Denies any photophobia, nausea/vomiting. Denies hx of migraines. Objective Vitals Vital Signs Date Time Temp Pulse Resp B/P Pulse Ox O2 Delivery O2 Flow Rate FiO2 02/12/17 07:53 97.7 82 19 143/72 98 02/11/17 23:40 98.4 83 18 147/79 98 02/11/17 20:33 98.9 84 18 139/76 95 02/11/17 20:14 83 18 140/72 98 Room Air 02/11/17 19:35 87 17 135/78 98 Room Air 02/11/17 17:30 109 18 98 Room Air 02/11/17 17:30 99.3 98 18 177/99 100 Room Air 02/11/17 17:30 100 Room Air 02/11/17 17:21 99.3 93 18 177/99 99 Result Diagram: 02/11/17 1730 02/11/17 1730 Objective Remarks GENERAL: Well-nourished, well-developed obese female patient in [facility]. SKIN: Warm and dry. No rash. HEENT: Normocephalic. Atraumatic. Pupils equal and round. Mucous membranes pink and moist. NECK: Supple. Trachea midline. CARDIOVASCULAR: Regular rate and rhythm. S1, S2 noted. No murmur appreciated. RESPIRATORY: No accessory muscle use. Clear to auscultation. Breath sounds equal bilaterally. GASTROINTESTINAL: Abdomen soft, non-tender, nondistended. Normoactive bowel sounds x4. MUSCULOSKELETAL: No obvious deformities. Extremities without clubbing, cyanosis , or edema. NEUROLOGICAL: Awake and alert. No obvious cranial nerve deficits. Motor grossly within normal limits. Normal speech. PSYCHIATRIC: Appropriate mood and affect; insight and judgment normal. Medications and IVs Current Medications Medications (Trade) Dose Ordered Sig/Stef Route Start Time Stop Time Status Last Admin (NS Flush) 2 ml UNSCH PRN IVF 02/11/17 17:30 (Catapres) 0.1 mg Q6H PRN PO 02/11/17 20:00 A/P Problem List: (1) Depression ICD Code: F32.9 Status: Acute (2) Intentional overdose of drug in tablet form ICD Code: T50.902A Status: Acute (3) Iron deficiency anemia ICD Code: D50.9 Status: Acute Assessment and Plan 21-year-old female with history of depression and bipolar disorder presents with suicidal ideation and overdose NyQuil Depression with suicidal expressions: Currently under Romero Act. Sitter. Psychiatry consulted. Intentional Overdose: patient reports taking "a bunch" of Nyquil, EMS reports Tylenol Cold & Flu. Tylenol level wnl. EKG reviewed and unremarkable. Monitored overnight in observation. Patient stable. Resolved. Hypertension: patient upset/crying upon arrival with SBP 170s. Improved to 130s without medications. Recommend keep BP log and f/up with PCP as outpatient. Heart healthy diet. Obesity: BMI of 31.8, discussed about weight reduction with diet and exercise. Microcytic anemia: iron panel consistent with iron deficiency. Started on ferrous sulfate bid. Mild Headache: will give ibuprofen 400mg x1. DVT Prophylaxis: ambulation Discharge Planning 0840hrs: The patient is medically stable for further psychiatric evaluation. Await psych consult. 1100hrs: Patient seen by psychiatry, discussed with Dr. Buckley, Nick Act lifted and cleared from psychiatric standpoint. Of note, patient admitted to psychiatry that she didn't actually ingest the medication but instead told her sister she did to make her upset. This is consistent with tylenol levels less than 2.0. The patient is medically stable for discharge. Will discharge home. Discharge patient to home Condition on discharge: Improved Heart Healthy Diet as tolerated Ad Greta activity Rx written: ferrous sulfate 325mg po bid Follow-up with primary care physician and psychiatry Attending Statement The exam, history, and the medical decision-making described in the above note were completed with the assistance of the mid-level provider. I reviewed and agree with the findings presented. I attest that I had a [id number] encounter with the patient on the same day, and personally performed and documented my assessment and findings in the medical record. Maria Esther Chou PA-C Feb 12, 2017 08:56 Aiden Martines MD Feb 12, 2017 17:43
[2017-02-12] MEDS ORDERED: FERR325T20 PO (11:02)
--- NOTE | 2017-02-12 11:02 | HHI.DCPOC ---
Discharge Care Plan Diagnosis: (1) Depression (2) Iron deficiency anemia Goals to Promote Your Health * To prevent worsening of your condition and complications * To maintain your health at the optimal level Directions to Meet Your Goals Take your medications as prescribed Follow your dietary instruction Follow activity as directed Keep your appointments as scheduled Take your immunizations and boosters as scheduled If your symptoms worsen call your PCP, if no PCP go to Urgent Care Center or Emergency Room Smoking is Dangerous to Your Health. Avoid second hand smoke Call the 24-hour hour crisis hotline for domestic abuse at Maria Esther Chou PA-C Feb 12, 2017 11:02
--- NOTE | 2017-02-12 11:05 | PD.PSY.CON ---
Provisional Diagnosis Admission Date Feb 11, 2017 at 18:28 Eminence I. Adjustment disorder with depressed mood, bipolar disorder Eminence II. Unspecified personality disorder Eminence III. Morbid obesity History of Present Illness Service Psychiatry Consult Requested By Primary Care Physician Unknown HPI The patient is a 21-year-old woman, domiciled with a friend in [facility], unemployed, supported by Social Security, with psychiatric history of bipolar disorder, multiple psychiatric hospitalizations, multiple suicidal attempts, self cutting behavior with no SI, outpatient psychiatric care in [facility], medical history of morbid obesity, who was brought in here by her sister bed very concerned and called the ambulance because apparently patient told her sister that she took 6-12 tablets of Tylenol cold and flu [id number] medications this morning Patient states that "I just want to go to sleep". Sister stated that she has been depressed for one month now just because of her "situation" , but would not elaborate about what is the situation about. She also says that she had an argument with her sister and she wanted her to feel that she was mad. She does not want and is reluctant to elaborate or go into details of her depression. Patient states increased weight gain forever year now. She repeatedly denies suicidal and homicidal ideation, she denies visual and auditory hallucinations. She has been quite in the ER, no agitation or aggressive behavior reported. Patient says that she is planning to continue her outpatient psychiatric care and taking her medications. She reports daily use of marijuana. Review of Systems Constitutional: DENIES: Diaphoretic episodes, Fatigue, Fever, Weight gain, Weight loss, Chills, Dizziness, Change in appetite, Night Sweats Endocrine: DENIES: Abnorml menstrual pattern, Heat/cold intolerance, Polydipsia , Polyuria, Polyphagia Eyes: DENIES: Blurred vision, Diplopia, Eye inflammation, Eye pain, Vision loss , Photosensitivity, Double Vision Ears, nose, mouth, throat: DENIES: Tinnitus, Hearing loss, Vertigo, Nasal discharge, Oral lesions, Throat pain, Hoarseness, Ear Pain, Running Nose, Epistaxis, Sinus Pain, Toothache, Odynophagia Cardiovascular: DENIES: Chest pain, Palpitations, Syncope, Dyspnea on Exertion , PND, Lower Extremity Edema, Orthopnea, Claudication Musculoskeletal: DENIES: Joint pain, Muscle aches, Stiffness, Joint Swelling, Back pain, Neck pain Integumentary: DENIES: Abnormal pigmentation, Pruritus, Rash, Nail changes, Breast masses, Breast skin changes, Nipple discharge Hematologic/lymphatic: DENIES: Bruising, Lymphadenopathy Immunologic/allergic: DENIES: Eczema, Urticaria Neurologic: DENIES: Abnormal gait, Headache, Localized weakness, Paresthesias, Seizures, Speech Problems, Tremor, Poor Balance Psychiatric: DENIES: Anxiety, Confusion, Mood changes, Depression, Hallucinations, Agitation, Suicidal Ideation, Homicidal Ideation, Delusions Past Family Social History Coded Allergies: No Known Allergies (Unverified , 01/23/17) Active Scripts Ferrous Sulfate (Ferosul)325 Mg [id number] Mg PO BID@ #60 TAB Prov:Maria Esther Chou PA-C 02/12/17 Current Medications Medications (Trade) Dose Ordered Sig/Stef Route Start Time Stop Time Status Last Admin (NS Flush) 2 ml UNSCH PRN IVF 02/11/17 17:30 02/12/17 10:32 (Catapres) 0.1 mg Q6H PRN PO 02/11/17 20:00 (Ferrous Sulfate) 325 mg BID@ PO 02/12/17 12:00 Family History Her mother is bipolar Social History Patient was born and raised in [place], she lives in [facility] with a friend, she is unemployed, supported by [employer], her highest level of education is 11th grade Patient's Strengths (min. 2) Verbal communication Physical Exam Vital Signs Vital Signs Date Time Temp Pulse Resp B/P Pulse Ox O2 Delivery O2 Flow Rate FiO2 02/12/17 07:53 97.7 82 19 143/72 98 02/11/17 20:14 Room Air Lab Results Laboratory Tests Test 02/11/17 17:30 White Blood Count 10.2 Red Blood Count 4.10 Hemoglobin 10.3 Hematocrit 31.7 Mean Corpuscular Volume 77.3 Mean Corpuscular Hemoglobin 25.1 Mean Corpuscular Hemoglobin 32.5 Concent Red Cell Distribution Width 17.8 Platelet Count 366 Mean Platelet Volume 7.2 Neutrophils (%) (Auto) 50.8 Lymphocytes (%) (Auto) 41.1 Monocytes (%) (Auto) 7.2 Eosinophils (%) (Auto) 0.5 Basophils (%) (Auto) 0.4 Neutrophils # (Auto) 5.2 Lymphocytes # (Auto) 4.2 Monocytes # (Auto) 0.7 Eosinophils # (Auto) 0.1 Basophils # (Auto) 0.0 CBC Comment DIFF FINAL Differential Comment Sodium Level 139 Potassium Level 3.6 Chloride Level 107 Carbon Dioxide Level 25.3 Anion Gap 7 Blood Urea Nitrogen 11 Creatinine 0.78 Estimat Glomerular Filtration 111 Rate Random Glucose 111 Calcium Level 8.5 Total Bilirubin 0.1 Aspartate Amino Transf 11 (AST/SGOT) Alanine Aminotransferase 19 (ALT/SGPT) Alkaline Phosphatase 74 Total Protein 7.9 Albumin 3.2 Salicylates Level LESS THAN 1.7 Acetaminophen Level LESS THAN 2.0 Ethyl Alcohol Level LESS THAN 3 Result Diagram: 02/11/17 1730 02/11/17 1730 Mental Status Examination Appearance Obese woman, regular clothes, fair hygiene, she is calm, superficially cooperative, guarded Orientation: x3 Memory: Unremarkable Thought Process: Logical, Linear Thought Content: Unremarkable Hallucination Type: None Attention and Concentration: Good Suicidal Ideation: No Previous Suicide Attempts: Yes Homicidal Ideation: No Previous Homicide Attempts: No Judgment: WNL Affect: Irritable Mood: Oppositional Motor Activity: Normal gait Assessment & Plan Problem List: (1) Adjustment disorder with depressed mood Assessment & Plan: On psychiatric evaluation today the patient reports frustration and anger after argument with sister. Patient reluctant to elaborate about the context and etiology of argument. Patient suggested that she might not taking an overdose and just wanted to meet appointment with her sister. This idea is congruent with her acetaminophen levels under 2. She denies suicidal or homicidal ideation, she denies visual and auditory hallucinations. She does not meet criteria for inpatient psychiatric admission , she can continue her outpatient care in [facility]. Extensive support, motivation and psychoeducation provided. Romero act will be lifted. ICD Code: F43.21 Assessment & Plan Estimated LOS: Oziel Guadarrama MD Feb 12, 2017 11:05
[2017-02-12] MEDS ORDERED: FERROUS SULFATE 325 MG (65 MG ELEMENTAL IRON) TAB PO SCH (12:00)
[2017-02-12 12:03] VITALS: BP 127/75; PULSE 86; RESP 18; TEMP 98; O2SAT 98
--- NOTE | 2017-02-12 12:04 | EKG ---
Date Performed: 02/11/2017 Time Performed: 17:19:08 PTAGE: 21 years EKG: Sinus rhythm NORMAL ECG PREVIOUS TRACING : 01/09/2017 18.52 Compared to prior tracing no significant change DOCTOR: Dennis Terrell Interpretating Date/Time 02/12/2017 12:02:24
== END 2017-02-12 14:15 | disposition home or self-care (01) ==
LOC: NEPE 17:10 → NEDA 18:28 → NEPHCDU 20:23
PROVIDERS: ADMIT Internal Medicine; ATTEND Internal Medicine
DX: F32.9 Major depressive disorder, single episode, unspecified (principal); D50.9 Iron deficiency anemia, unspecified; R45.851 Suicidal ideations; I10 Essential (primary) hypertension; R51 Headache; E66.9 Obesity, unspecified; Z68.31 Body mass index [BMI] 31.0-31.9, adult; Z79.899 Other long term (current) drug therapy
CPT/HCPCS: 80053; 81001; 82728; 83540; 83550; 84443; 84703; 85025; 85610; 85730; 93005; 96360; 99285; G0378; J7030; 80307